=== PATIENT | female | born 1980 | race African-American/Black ===

== ENCOUNTER → 2017-03-11 | Day surgery (SDC) | payer OTHER, BC ==
--- NOTE | 2017-03-14 10:16 | OP ---
DATE OF OPERATION: 03/11/2017 PREOPERATIVE DIAGNOSIS: Left breast mass 5 o'clock, 8 cm from the nipple and right breast mass 3:30 o'clock, 5 cm from the nipple. POSTOPERATIVE DIAGNOSIS: Left breast mass 5 o'clock, 8 cm from the nipple and right breast mass 3:30 o'clock, 5 cm from the nipple. PROCEDURE PERFORMED: Bilateral ultrasound-guided core biopsies with clip placement. ANESTHESIA: Local. ATTENDING PHYSICIAN: Ananda Mckeon MD ESTIMATED BLOOD LOSS: Minimal. COMPLICATIONS: None. PROCEDURE IN DETAIL: The patient was made aware of the risks and benefits of the procedure and consented. She was placed in the supine position. The left side was approached first. Under sterile conditions with 1% lidocaine for local anesthesia, a small manisha was made in the skin. Using a 13-guage biopsy with inferolateral approach and ultrasound guidance needle, multiple cores were obtained and submitted to Pathology. Likewise under ultrasound guidance a U-shaped clip was placed into the biopsy region. Steri-Strips with sterile bandage were applied. The right side was then approached. Under sterile conditions with 1% lidocaine for local anesthesia, a small manisha was made in the skin. Using a 13-guage suction biopsy in the inferolateral approach and ultrasound guidance needle, multiple cores were obtained and submitted to Pathology. Likewise under ultrasound guidance a bow-tie clip was placed into the biopsy region. This was well-tolerated by the patient. Steri-Strips with sterile bandages were applied. The patient tolerated the procedure well and was discharged home. Will contact her with result. ANANDA MCKEON M.D. [id number]
== END | disposition home or self-care (01) ==
LOC: FRADUS-SUR 15:23
PROVIDERS: ATTEND Surgery Surgical Oncology
PROC: 0HBV3ZX Excision of Bilateral Breast, Percutaneous Approach, Diagnostic (ICD-10-PCS; principal; 2017-03-11)
DX: N63 Unspecified lump in breast (principal); D24.2 Benign neoplasm of left breast; D24.1 Benign neoplasm of right breast
CPT/HCPCS: 19083; 87899; A4648